=== PATIENT | male | born 1940 | race Caucasian/White ===

== ENCOUNTER 2017-10-28 06:07 | PSDC | payer MEDICARE, SELFPAY ==
[2017-10-28 06:32] VITALS: BP 164/86; PULSE 87; RESP 16; TEMP 36.9; O2SAT 97
[2017-10-28] MEDS: Lidocaine 1% Pres-Free 5 ML VIAL (07:36)
[2017-10-28] MEDS: Povidone-Iodine Ophth 30 ML BTL (07:37)
[2017-10-28] MEDS: Balanced Salt Soln.-PLUS 500 ML BAG (07:38)
[2017-10-28] MEDS: Lidocaine 2% Jelly 6 ML SYR (07:40)
--- NOTE | 2017-10-28 09:39 | W.PM.DSUDISC ---
Discharge Plan Discharge Details Reason For Visit: CATARACT OD Attending Provider: Justice Maynard Primary Care Provider: Edilberto Means Home Meds and New Rx's Prescriptions: No Action losartan 50 mg Tablet 50 mg PO DAILY RF: 0 glipizide 10 mg Tablet 10 mg PO BID RF: 0 allopurinol 100 mg Tablet 200 mg PO BID RF: 0 aspirin [Aspir-Low] 81 mg Tablet,Delayed Release (Dr/Ec) 81 mg PO DAILY RF: 0 sildenafil [Viagra] 100 mg Tablet 100 mg PO ONCE PRNRF: 0 pantoprazole 40 mg Tablet,Delayed Release (Dr/Ec) 40 mg PO BID RF: 0 simvastatin 20 mg Tablet 20 mg PO QPM RF: 0 metformin 1,000 mg Tablet 1,000 mg PO BID RF: 0 nitroglycerin 0.4 mg Tablet, Sublingual 0.4 mg SUBLINGUAL DIRECTED RF: 0 folic acid 1 mg Tablet 1 mg PO DAILY RF: 0 pregabalin [Lyrica] 75 mg Capsule 75 mg PO BID RF: 0 sitagliptin [Januvia] 100 mg Tablet 100 mg PO DAILY RF: 0 Discharge Instructions Stand Alone Forms: Post-op Topical Cataract, Melvina Edmonds ([facility]) Discharge Orders Discharge Orders: Discharge Order (Routine); Ordered 10/28/17 Ordered By: Justice Maynard
--- NOTE | 2017-10-28 09:40 | ROE_ITS ---
Date of service: 10/28/17 Time of Service: 09:39 Operative Note Pre-op diagnosis: Cataract, right eye Post-op diagnosis: same Procedure: Cataract extraction using phacoemulsification with intraocular lens implant, right eye Surgeon: Justice Maynard Anesthesia: MAC (with local sub-tenon's anesthetic injection) Pathology: none sent Complications: None Patient was transported to: same day Patient's condition: stable Indications: Progressive vision loss due to cataract, right eye Procedure Description: CATARACT SURGERY OPERATIVE REPORT PREOPERATIVE DIAGNOSIS: Nuclear/posterior subcapsular cataract, right eye POSTOPERATIVE DIAGNOSIS: Same OPERATION: Cataract extraction using phacoemulsification with posterior chamber intraocular lens implant, right eye. IOL: IOL Electrical Engineering Technologist/Model: [employer] / DESTIN Tecnis ZCB00 IOL Power: +20.0 diopters IOL Serial Number: [id number] Optic Diameter: 6.0 mm Haptic/Overall Diameter: 13.0 mm PHACO INFO: Devante ZeroFOXurion Vision System with OZil and Active Fluidics Cumulative Dispersed Energy (CDE): 12.22 seconds SURGEON: Justice Maynard MD, KRYSTYNA ANESTHESIA: Monitored Anesthesia Care (MAC), with local sub-tenon's anesthetic infiltration without sedation COMPLICATIONS: None SPECIMENS: None INDICATIONS FOR PROCEDURE: The patient is a 77-year-old gentleman who presents with significant diminished visual acuity in his right eye who was noted to have a moderate nuclear and posterior subcapsular cataract with visual acuity of 20/50. The option of cataract surgery was offered to the patient and he wished to proceed. PROCEDURE: The correct surgical eye was identified and marked as the right eye and the pupil was dilated in the preoperative area using mydriatics, cycloplegics, and NSAIDS (except in aspirin allergic patients). The dilated pupil size was 7.0 mm. No sedation was given. The patient was brought to the operating room where cardiopulmonary monitoring was instituted and surgical time -out was performed, confirming the correct operative eye and IOL power. Topical anesthesia was administered and ophthalmic povidone-iodine 5% was instilled into the conjunctival fornices. Lidocaine gel was applied to the cornea and the gloria-ocular area was prepped with Betadine 10% solution and draped in the usual sterile fashion for intraocular surgery. Steri-strips were used to cover the lashes and lid margins and an adhesive eye drape was placed. Care was taken to isolate the lashes and lid margins under the Steri-strips and adhesive eye drape. A lid speculum was placed between the lids of the operative eye and the [employer]-[employer]ace operating microscope was maneuvered into position. Mal scissors were then used to make a conjunctival buttonhole approximately 6mm posterior to the limbus in the inferonasal quadrant. Blunt dissection was carried out to expose bare sclera, and a blunt-tipped sub-tenon? s anesthesia cannula was introduced and passed posteriorly along the globe where non-preserved plain lidocaine was injected into posterior sub-Tenon?s space. A sideport knife was used to make a paracentesis port at the 7:00 postion and the anterior chamber was filled with Healon GV. A 2.4mm keratome knife was used to create a half-thickness groove at the limbus and then to construct a three-plane near-clear corneal tunnel extending 2.0mm into clear cornea at the 10:00 position. A flap was raised on the anterior capsule and capsulorhexis forceps were used to complete a continuous curvilinear capsulorhexis of 4.5 mm, somewhat irregular superiorly. Capsulotomy was somewhat challenging due to constant eye movement and an unusually deep anterior chamber. Balanced salt solution was then used to perform cortical cleaving hydrodissection and nuclear hydrodelineation until the lens could be freely rotated within the capsular bag. The lens nucleus was then disassembled and removed within the capsular bag and iris plane using phacoemulsification. Residual cortical material was removed using the 45-degree angled silicone I/A tip with 0.3mm port. The posterior capsule was carefully polished to remove as much residual lens epithelial cells as safely possible. The capsular bag was then inflated and the anterior chamber deepened with viscoelastic. The lens implant described above was inserted into the capsular bag using the DESTIN Tor[place] Injector. A Kuglen hook was used to dial the IOL into position. Residual viscoelastic was then removed first from posterior to the IOL, then from the anterior chamber using the I/A handpiece. The lens implant was noted to center nicely within the capsular bag. The incisions were stromally hydrated , and the anterior chamber was reformed using BSS. Then 0.4cc of moxifloxacin 1.5mg/ml were injected into the capsular bag and anterior chamber. The incisions were checked with a Weck spear and found to be secure. Several drops of ophthalmic povidone-iodine 5% were then applied to the eye followed by two drops of Imprimis combination moxifloxacin/dexamethasone solution. The drapes were removed and a clear plastic protective eye shield was placed over the eye. The patient was then returned to [facility] in stable condition.
== END 2017-10-28 08:42 | disposition home or self-care (01) ==
LOC: SUR 06:07
PROVIDERS: PCP Family Medicine Adult Medicine; Visit Provider Ophthalmology
PROC: (CPT 66984; principal; 2017-10-28 07:30)
DX: H25.11 Age-related nuclear cataract, right eye (principal); H25.041 Posterior subcapsular polar age-related cataract, right eye; I10 Essential (primary) hypertension; K21.9 Gastro-esophageal reflux disease without esophagitis; E11.9 Type 2 diabetes mellitus without complications
CPT/HCPCS: 66984; V2632